=== PATIENT | female | born 1940 | race Caucasian/White ===

== ENCOUNTER 2017-06-20 10:13 | Emergency (ER) | payer MEDICARE, OTHER ==
[~2017-06-20] VITALS: Ht 154.9 cm; Wt 77.0 kg
[2017-06-20 10:15] VITALS: Ht 154.9 cm; Wt 77.0 kg
[2017-06-20] MEDS ORDERED: HYDROCODONE/APAP (10/325) TAB PO ONE (11:30)
--- NOTE | 2017-06-20 11:41 | RADRPT ---
PROCEDURE: XR ribs . CLINICAL INDICATION: pain TECHNIQUE: AP and oblique views of the left ribs were obtained. COMPARISON: None FINDINGS: The bone mineralization is decreased. There is no acute fracture or subluxation. The soft tissues are unremarkable. S-shaped scoliosis of the thoracolumbar spine is noted as well as partially visualized posterior lum bar spine fusion hardware. There are significant degenerative changes in the visualized spine including disc space narrowing an d lateral disc osteophyte complexes. There are severe degenerative changes of the left glenohumeral joint including joint space narrowing and prominent osteophytes. RPTAT: AA IMPRESSION: Decreased osseous mineralization without evidence of an acute fracture. Severe degenerative changes of the visualized thoracolumbar spine and left glenohumeral joint. Physician Shalom Date Time Electronically viewed and signed by Physician Shalom on 06/20/2017 11:41 /
[2017-06-20] MEDS ORDERED: TRAM50TA2 PO ×2 (11:54→12:35)
--- NOTE | 2017-06-20 11:59 | ERD ---
ER Documentation Chief Complaint Date/Time DATE: 06/20/17 TIME: 11:57 Chief Complaint left rib cage pain HPI 76-year-old female presents with left rib pain for last 3 days. May have started after almost slipping backward in her chair prior to the onset of pain. She denies any fevers, cough, hemoptysis. Patient has a history of rheumatoid arthritis. She takes approximately 6 Vicodin per day for chronic pain. ROS All systems reviewed and are negative except as per history of present illness. Medications Home Meds Active Scripts Tramadol HCl (Tramadol HCl) 50 Mg Tablet, 50 MG PO Q4 Y for PAIN, #16 TAB Prov:GOMEZ SPARKS MD 06/20/17 Physical Exam Vitals Vital Signs Date Time Temp Pulse Resp B/P Pulse Ox O2 Delivery O2 Flow Rate FiO2 06/20/17 10:15 98.1 83 18 142/67 99 Physical Exam Const: []Alert, [id number] Head: Atraumatic Eyes: Normal Conjunctiva ENT: Normal External Ears, Nose and Mouth. Neck: Full range of motion..~ No meningismus. Resp: Clear to auscultation bilaterally. Tenderness T10 area without skin changes, crepitance, deformities. Cardio: Regular rate and rhythm, no murmurs Abd: Soft, non tender, non distended. Normal bowel sounds Skin: No petechiae or rashes Back: No midline or flank tenderness Ext: No cyanosis, or edema. No calf swelling or Homans sign. Neur: Awake and alert Psych: Normal Mood and Affect Results 24 hrs Current Medications Medications (Trade) Dose Ordered Sig/Judah Route PRN Reason Start Time Stop Time Status Last Admin Dose Admin Acetaminophen/ Hydrocodone Bitart ([place] (10/325)) 1 tab ONCE ONCE PO 06/20/17 11:30 06/20/17 11:31 DC Procedures/MDM X-ray left ribs 2V Interpreted by me: Soft Tissue: No acute abnormalities Bones: No acute abnormalities Mediastinum/Cardiac Silhouette/Lungs: [No acute abnormalities]. Impression- normal left rib x-ray Patient was given [place] 10 mg by mouth. Patient presents with left rib pain of uncertain etiology. It started with awkward movement. 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 Current signs or symptoms do not suggest pulmonary and was not, acute coronary syndrome, pneumonia, acute abdomen. She will treated with tramadol and further observation at home. She is advised to return for fevers, shortness breath, blood, new worsening symptoms or primary doctor this week. Departure Diagnosis: Primary Impression: Rib pain Condition: Stable Patient Instructions: Rib Contusion Additional Instructions: No fracture seen on x-ray. Likely strain. Recheck for fevers, shortness of breath, new worsening symptoms Or with primary care doctor this week GOMEZ SPARKS MD Jun 20, 2017 11:59
== END 2017-06-20 13:07 | disposition home or self-care (01) ==
LOC: FTE 10:13
DX: R07.81 Pleurodynia (principal)
CPT/HCPCS: 71100